=== PATIENT | male | born 1975 | race Caucasian/White ===

== ENCOUNTER 2020-07-21 14:56 | Inpatient (IN) | payer OTHER ==
[2020-07-21 16:09] VITALS: BMI 26.2
[2020-07-21] MEDS ORDERED: BISMUTH SUBSALICYLATE 524 MG/30 ML UD PO PRN (17:12)
[2020-07-21] MEDS ORDERED: MENTHOL/PHENOL 1 EACH UD MM PRN (17:12)
[2020-07-21] MEDS ORDERED: IBUPROFEN 400 MG TABLET (FP) PO PRN (17:12)
[2020-07-21] MEDS ORDERED: MAGNESIUM CITRATE 300 ML BOTTLE PO PRN (17:12)
[2020-07-21] MEDS ORDERED: MAGNESIUM HYDROX 2400MG/30ML ORAL SUSPENSION 30 ML CUP PO PRN (17:12)
[2020-07-21] MEDS ORDERED: ACETAMINOPHEN 325 MG TABLET (FP) PO PRN ×2 (17:12)
[2020-07-21] MEDS ORDERED: chlordiazePOXIDE HCL 25 MG CAPSULE PO PRN (17:12)
[2020-07-21] MEDS ORDERED: TRIMETHOBENZAMIDE HCL 200MG/2ML INJ IM ONE (17:46)
[2020-07-21] MEDS: MAG HYDROX/AL HYDROX/SIMETH 30 ML UNIT-DOSE CUP PO PRN (19:02)
[2020-07-21] MEDS ORDERED: MELATONIN 5 MG TABLETS PO SCH (22:00)
[2020-07-21] MEDS: hydrOXYzine PAMOATE 25 MG CAPSULE (FP) PO PRN (22:08)
[2020-07-21] MEDS: ONDANSETRON *ODT* 4 MG TABLET SL PRN (22:08)
[2020-07-21] MEDS: chlordiazePOXIDE HCL 25 MG CAPSULE PO SCH (22:09)
[2020-07-21] MEDS: THIAMINE HCL 100 MG TABLET (FP) PO SCH (22:09)
[2020-07-21] MEDS: METHOCARBAMOL 500 MG TABLET PO PRN (22:43)
[2020-07-22] MEDS: ONDANSETRON *ODT* 4 MG TABLET SL PRN (05:38)
[2020-07-22] MEDS: chlordiazePOXIDE HCL 25 MG CAPSULE PO SCH ×4 (05:38→22:48)
[2020-07-22] MEDS: hydrOXYzine PAMOATE 25 MG CAPSULE (FP) PO PRN ×3 (05:38→18:13)
[2020-07-22] MEDS: MAG HYDROX/AL HYDROX/SIMETH 30 ML UNIT-DOSE CUP PO PRN (05:41)
[2020-07-22] MEDS: INSULIN SLIDING SCALE (NOVOLOG) 1 VIAL SQ SCH ×3 (06:22→16:50)
[2020-07-22] MEDS: PRENATAL VITAMINS W/ FOLIC ACID TABLET (FP) PO SCH (10:17)
[2020-07-22] MEDS: METHOCARBAMOL 500 MG TABLET PO PRN (10:18)
[2020-07-22 10:51] LABS: POTASSIUM 3.7 mmol/L (3.5-5.1)
[2020-07-22 10:54] LABS: HEMATOCRIT 42.4 % (35.4-49); HEMOGLOBIN 14.1 GM/dL (11.7-16.9); MCH 28.9 pg (25.7-33.7); MCHC 33.3 g/dl (32.0-35.9); MEAN CELL VOLUME 86.7 fl (80-96); MEAN PLT VOLUME 8.5 fl (7.5-11.1); PLATELET COUNT 184 K/MM3 (134-434); RBC 4.89 M/mm3 (4.00-5.60); RDW 17.2 % (11.9-15.9); WHITE BLOOD COUNT 3.3 K/mm3 (4.0-10.0)
[2020-07-22 10:57] LABS: ALBUMIN 3.7 g/dl (3.4-5.0); BLOOD UREA NITROGEN 8.2 mg/dL (7-18)
[2020-07-22 11:00] LABS: CREATININE 0.7 mg/dL (0.55-1.3)
[2020-07-22 11:02] LABS: BILIRUBIN,TOTAL 0.9 mg/dL (0.2-1)
[2020-07-22 11:03] LABS: TOT PROT 6.8 g/dl (6.4-8.2)
[2020-07-22] MEDS: GABAPENTIN 100 MG CAPSULE PO SCH ×2 (14:08→22:47)
[2020-07-22] MEDS: metFORMIN HCL 500 MG TABLET (FP) PO SCH (18:11)
[2020-07-22] MEDS ORDERED: MIRTAZAPINE 30 MG TABLET PO SCH (22:00)
[2020-07-22] MEDS: traZODone HCL 100 MG TABLET (FP) PO SCH (22:47)
[2020-07-22] MEDS: MIRTAZAPINE 15 MG TABLET (FP) PO SCH (22:47)
[2020-07-22] MEDS: ROSUVASTATIN CA 10 MG TABLET (FP) PO SCH (22:47)
[2020-07-22] MEDS: THIAMINE HCL 100 MG TABLET (FP) PO SCH (22:47)
[2020-07-23] MEDS: chlordiazePOXIDE HCL 25 MG CAPSULE PO SCH ×4 (05:46→22:18)
[2020-07-23] MEDS: GABAPENTIN 100 MG CAPSULE PO SCH ×3 (05:46→22:18)
[2020-07-23] MEDS: hydrOXYzine PAMOATE 25 MG CAPSULE (FP) PO PRN ×4 (05:50→22:17)
[2020-07-23] MEDS: INSULIN SLIDING SCALE (NOVOLOG) 1 VIAL SQ SCH ×3 (08:27→17:45)
[2020-07-23] MEDS: metFORMIN HCL 500 MG TABLET (FP) PO SCH ×2 (08:27→16:33)
[2020-07-23] MEDS: PRENATAL VITAMINS W/ FOLIC ACID TABLET (FP) PO SCH (10:23)
[2020-07-23] MEDS: LISINOPRIL 10 MG TABLET PO SCH (10:23)
[2020-07-23] MEDS: METHOCARBAMOL 500 MG TABLET PO PRN (16:33)
[2020-07-23] MEDS: traZODone HCL 100 MG TABLET (FP) PO SCH (22:18)
[2020-07-23] MEDS: MIRTAZAPINE 15 MG TABLET (FP) PO SCH (22:18)
[2020-07-23] MEDS: THIAMINE HCL 100 MG TABLET (FP) PO SCH (22:18)
[2020-07-23] MEDS: ROSUVASTATIN CA 10 MG TABLET (FP) PO SCH (23:12)
[2020-07-24] MEDS ORDERED: chlordiazePOXIDE HCL 10 MG CAPSULE PO PRN
[2020-07-24] MEDS: METHOCARBAMOL 500 MG TABLET PO PRN ×2 (00:45→16:40)
[2020-07-24] MEDS: chlordiazePOXIDE HCL 10 MG CAPSULE PO SCH ×4 (05:57→22:21)
[2020-07-24] MEDS: hydrOXYzine PAMOATE 25 MG CAPSULE (FP) PO PRN ×3 (05:58→16:44)
[2020-07-24] MEDS: GABAPENTIN 100 MG CAPSULE PO SCH ×3 (05:58→22:20)
[2020-07-24] MEDS: INSULIN SLIDING SCALE (NOVOLOG) 1 VIAL SQ SCH ×3 (06:56→16:41)
[2020-07-24] MEDS: metFORMIN HCL 500 MG TABLET (FP) PO SCH ×2 (06:56→16:40)
[2020-07-24] MEDS: LISINOPRIL 10 MG TABLET PO SCH (10:27)
[2020-07-24] MEDS: PRENATAL VITAMINS W/ FOLIC ACID TABLET (FP) PO SCH (10:27)
[2020-07-24] MEDS ORDERED: INSULIN SLIDING SCALE (NOVOLOG) 1 VIAL SQ ONE (16:48)
[2020-07-24] MEDS: THIAMINE HCL 100 MG TABLET (FP) PO SCH (22:20)
[2020-07-24] MEDS: MIRTAZAPINE 15 MG TABLET (FP) PO SCH (22:20)
[2020-07-24] MEDS: traZODone HCL 100 MG TABLET (FP) PO SCH (22:20)
[2020-07-24] MEDS: ROSUVASTATIN CA 10 MG TABLET (FP) PO SCH (22:20)
[2020-07-25] MEDS: GABAPENTIN 100 MG CAPSULE PO SCH ×3 (05:39→22:19)
[2020-07-25] MEDS: chlordiazePOXIDE HCL 10 MG CAPSULE PO SCH ×2 (05:40→17:16)
[2020-07-25] MEDS: METHOCARBAMOL 500 MG TABLET PO PRN ×5 (05:41→23:20)
[2020-07-25] MEDS: INSULIN SLIDING SCALE (NOVOLOG) 1 VIAL SQ SCH ×3 (07:38→17:19)
[2020-07-25] MEDS: metFORMIN HCL 500 MG TABLET (FP) PO SCH ×2 (07:38→17:15)
[2020-07-25] MEDS: LISINOPRIL 10 MG TABLET PO SCH (10:06)
[2020-07-25] MEDS: hydrOXYzine PAMOATE 25 MG CAPSULE (FP) PO PRN ×4 (10:06→23:20)
[2020-07-25] MEDS: PRENATAL VITAMINS W/ FOLIC ACID TABLET (FP) PO SCH (10:07)
[2020-07-25] MEDS ORDERED: INSULIN SLIDING SCALE (NOVOLOG) 1 VIAL SQ ONE (14:36)
[2020-07-25] MEDS: traZODone HCL 100 MG TABLET (FP) PO SCH (22:20)
[2020-07-25] MEDS: THIAMINE HCL 100 MG TABLET (FP) PO SCH (22:20)
[2020-07-25] MEDS: MIRTAZAPINE 15 MG TABLET (FP) PO SCH (22:20)
[2020-07-25] MEDS: ROSUVASTATIN CA 10 MG TABLET (FP) PO SCH (22:20)
[2020-07-26] MEDS ORDERED: chlordiazePOXIDE HCL 10 MG CAPSULE PO ONE (05:00)
[2020-07-26] MEDS: METHOCARBAMOL 500 MG TABLET PO PRN (05:31)
[2020-07-26] MEDS: GABAPENTIN 100 MG CAPSULE PO SCH (05:32)
[2020-07-26] MEDS: INSULIN SLIDING SCALE (NOVOLOG) 1 VIAL SQ SCH (06:00)
[2020-07-26] MEDS: metFORMIN HCL 500 MG TABLET (FP) PO SCH (06:00)
[2020-07-26 09:17] VITALS: BP 89/67; PULSE 109; TEMP 98
[2020-07-26] MEDS: LISINOPRIL 10 MG TABLET PO SCH (09:21)
[2020-07-26] MEDS: PRENATAL VITAMINS W/ FOLIC ACID TABLET (FP) PO SCH (09:21)
== END 2020-07-26 09:24 | disposition home or self-care (01) | DRG 775 ==
LOC: YASAS 14:56 → Y3N 17:34
PROVIDERS: ADMIT Allergy & Immunology; ATTEND Allergy & Immunology
PROC: HZ2ZZZZ Detoxification Services for Substance Abuse Treatment (ICD-10-PCS; principal; 2020-07-21)
DX: F10.230 Alcohol dependence with withdrawal, uncomplicated (principal); F10.282 Alcohol dependence with alcohol-induced sleep disorder; F10.280 Alcohol dependence with alcohol-induced anxiety disorder; F10.24 Alcohol dependence with alcohol-induced mood disorder; F32.9 Major depressive disorder, single episode, unspecified; F43.10 Post-traumatic stress disorder, unspecified; G40.909 Epilepsy, unspecified, not intractable, without status epilepticus; G47.00 Insomnia, unspecified; I10 Essential (primary) hypertension; E78.5 Hyperlipidemia, unspecified; E11.65 Type 2 diabetes mellitus with hyperglycemia; Z79.4 Long term (current) use of insulin
CPT/HCPCS: 36415; 80053; 82962; 85027; 86780; 93005; 93010; C9803; Q0162; U0003; U0005

== ENCOUNTER 2021-03-02 09:46 | Inpatient (IN) | payer OTHER ==
[2021-03-02 10:08] VITALS: BMI 19.8
[2021-03-02] MEDS ORDERED: MAG HYDROX/AL HYDROX/SIMETH 30 ML UNIT-DOSE CUP PO PRN (10:26)
[2021-03-02] MEDS ORDERED: MAGNESIUM HYDROX 2400MG/30ML ORAL SUSPENSION 30 ML CUP PO PRN (10:26)
[2021-03-02] MEDS ORDERED: IBUPROFEN 400 MG TABLET (FP) PO PRN (10:26)
[2021-03-02] MEDS ORDERED: MAGNESIUM CITRATE 300 ML BOTTLE PO PRN (10:26)
[2021-03-02] MEDS ORDERED: ACETAMINOPHEN 325 MG TABLET (FP) PO PRN ×2 (10:26)
[2021-03-02] MEDS ORDERED: MENTHOL/PHENOL 1 EACH UD MM PRN (10:26)
[2021-03-02] MEDS ORDERED: diazePAM 5 MG TABLET PO PRN (10:26)
[2021-03-02] MEDS ORDERED: BISMUTH SUBSALICYLATE 524 MG/30 ML PO PRN (10:26)
[2021-03-02] MEDS ORDERED: ONDANSETRON *ODT* 4 MG TABLET SL PRN (10:26)
[2021-03-02] MEDS ORDERED: diazePAM 5 MG TABLET ONE (10:44)
[2021-03-02] MEDS ORDERED: diazePAM 5 MG TABLET PO SCH (11:00)
[2021-03-02] MEDS ORDERED: INSULIN (NOVOLOG) ASPART 100 UNITS/ML 10ML VIAL SQ ONE (11:30)
[2021-03-02] MEDS: INSULIN SLIDING SCALE (NOVOLOG) 1 VIAL SQ SCH ×2 (12:38→17:54)
[2021-03-02] MEDS: PRENATAL VITAMINS W/ FOLIC ACID TABLET (FP) PO SCH (12:38)
[2021-03-02] MEDS ORDERED: LORazepam 1 MG TABLET PO PRN (13:09)
[2021-03-02] MEDS: hydrOXYzine PAMOATE 25 MG CAPSULE (FP) PO SCH ×3 (15:09→22:48)
[2021-03-02] MEDS: GABAPENTIN 300 MG CAPSULE PO SCH ×2 (15:09→22:48)
[2021-03-02 17:41] LABS: HEMATOCRIT 41.8 % (35.4-49); HEMOGLOBIN 14.3 GM/dL (11.7-16.9); MCH 29.6 pg (25.7-33.7); MCHC 34.2 g/dl (32.0-35.9); MEAN CELL VOLUME 86.7 fl (80-96); MEAN PLT VOLUME 7.7 fl (7.5-11.1); PLATELET COUNT 316 10^3/uL (134-434); RBC 4.82 M/mm3 (4.00-5.60); RDW 16.3 % (11.9-15.9); WHITE BLOOD COUNT 4.6 K/mm3 (4.0-10.0)
[2021-03-02 17:43] LABS: BLOOD UREA NITROGEN 5.5 mg/dL (7-18)
[2021-03-02 17:47] LABS: CREATININE 0.7 mg/dL (0.55-1.3)
[2021-03-02 17:48] LABS: BILIRUBIN,TOTAL 0.3 mg/dL (0.2-1); TOT PROT 7.7 g/dl (6.4-8.2)
[2021-03-02] MEDS: LORazepam 2 MG TABLET PO SCH ×2 (17:48→22:49)
[2021-03-02] MEDS: INSULIN (NOVOLOG) ASPART 100 UNITS/ML 10ML VIAL SQ SCH ×2 (17:52→22:50)
[2021-03-02] MEDS ORDERED: INSULIN (NOVOLOG) ASPART 100 UNITS/ML 10ML VIAL SQ SCH (22:00)
[2021-03-02] MEDS: THIAMINE HCL 100 MG TABLET (FP) PO SCH (22:48)
[2021-03-02] MEDS: MELATONIN 5 MG TABLETS PO SCH (22:48)
[2021-03-03] MEDS: hydrOXYzine PAMOATE 25 MG CAPSULE (FP) PO SCH ×5 (06:24→22:39)
[2021-03-03] MEDS: LORazepam 2 MG TABLET PO SCH ×4 (06:24→22:41)
[2021-03-03] MEDS: GABAPENTIN 300 MG CAPSULE PO SCH ×3 (06:24→22:40)
[2021-03-03] MEDS: INSULIN SLIDING SCALE (NOVOLOG) 1 VIAL SQ SCH ×3 (06:29→17:54)
[2021-03-03] MEDS: INSULIN (NOVOLOG) ASPART 100 UNITS/ML 10ML VIAL SQ SCH ×4 (06:31→21:46)
[2021-03-03] MEDS: METHOCARBAMOL 500 MG TABLET PO PRN ×2 (06:34→17:51)
[2021-03-03] MEDS: PRENATAL VITAMINS W/ FOLIC ACID TABLET (FP) PO SCH (10:30)
[2021-03-03] MEDS: traZODone HCL 50 MG TABLET (FP) PO SCH (22:40)
[2021-03-03] MEDS: MIRTAZAPINE 15 MG TABLET (FP) PO SCH (22:40)
[2021-03-03] MEDS: MELATONIN 5 MG TABLETS PO SCH (22:40)
[2021-03-03] MEDS: THIAMINE HCL 100 MG TABLET (FP) PO SCH (22:41)
[2021-03-04] MEDS ORDERED: diazePAM 5 MG TABLET PO SCH (06:00)
[2021-03-04] MEDS: LORazepam 1 MG TABLET PO SCH ×4 (06:19→22:22)
[2021-03-04] MEDS: hydrOXYzine PAMOATE 25 MG CAPSULE (FP) PO SCH ×5 (06:20→22:21)
[2021-03-04] MEDS: GABAPENTIN 300 MG CAPSULE PO SCH ×3 (06:20→22:21)
[2021-03-04] MEDS: INSULIN SLIDING SCALE (NOVOLOG) 1 VIAL SQ SCH ×3 (08:00→17:07)
[2021-03-04] MEDS: INSULIN (NOVOLOG) ASPART 100 UNITS/ML 10ML VIAL SQ SCH ×4 (08:00→22:33)
[2021-03-04] MEDS: PRENATAL VITAMINS W/ FOLIC ACID TABLET (FP) PO SCH (10:07)
[2021-03-04] MEDS: METHOCARBAMOL 500 MG TABLET PO PRN ×2 (16:03→22:25)
[2021-03-04] MEDS: traZODone HCL 50 MG TABLET (FP) PO SCH (22:20)
[2021-03-04] MEDS: THIAMINE HCL 100 MG TABLET (FP) PO SCH (22:21)
[2021-03-04] MEDS: MIRTAZAPINE 15 MG TABLET (FP) PO SCH (22:21)
[2021-03-04] MEDS: MELATONIN 5 MG TABLETS PO SCH (22:21)
[2021-03-04] MEDS ORDERED: INSULIN SLIDING SCALE (NOVOLOG) 1 VIAL SQ ONE (22:23)
[2021-03-05] MEDS ORDERED: LORazepam 0.5 MG TABLET PO PRN
[2021-03-05] MEDS ORDERED: diazePAM 5 MG TABLET PO SCH (06:00)
[2021-03-05] MEDS: hydrOXYzine PAMOATE 25 MG CAPSULE (FP) PO SCH ×5 (06:02→22:30)
[2021-03-05] MEDS: GABAPENTIN 300 MG CAPSULE PO SCH ×3 (06:02→22:31)
[2021-03-05] MEDS: LORazepam 0.5 MG TABLET PO SCH ×4 (06:02→22:31)
[2021-03-05] MEDS: INSULIN (NOVOLOG) ASPART 100 UNITS/ML 10ML VIAL SQ SCH ×4 (08:07→22:37)
[2021-03-05] MEDS: INSULIN SLIDING SCALE (NOVOLOG) 1 VIAL SQ SCH ×3 (08:08→16:40)
[2021-03-05] MEDS: METHOCARBAMOL 500 MG TABLET PO PRN ×2 (10:05→16:40)
[2021-03-05] MEDS: PRENATAL VITAMINS W/ FOLIC ACID TABLET (FP) PO SCH (10:05)
[2021-03-05] MEDS ORDERED: traZODone HCL 100 MG TABLET (FP) PO SCH (22:00)
[2021-03-05] MEDS ORDERED: INSULIN (LEVEMIR) 100 UNITS/ML UNITS SQ SCH (22:00)
[2021-03-05] MEDS: MIRTAZAPINE 15 MG TABLET (FP) PO SCH (22:29)
[2021-03-05] MEDS ORDERED: INSULIN SLIDING SCALE (NOVOLOG) 1 VIAL SQ ONE (22:36)
[2021-03-05] MEDS: THIAMINE HCL 100 MG TABLET (FP) PO SCH (22:38)
[2021-03-05] MEDS: MELATONIN 5 MG TABLETS PO SCH (22:38)
[2021-03-06] MEDS ORDERED: LORazepam 0.5 MG TABLET PO ONE (05:00)
[2021-03-06] MEDS: METHOCARBAMOL 500 MG TABLET PO PRN (05:01)
[2021-03-06] MEDS: hydrOXYzine PAMOATE 25 MG CAPSULE (FP) PO SCH ×2 (05:01→09:22)
[2021-03-06] MEDS: GABAPENTIN 300 MG CAPSULE PO SCH (05:01)
[2021-03-06] MEDS ORDERED: diazePAM 5 MG TABLET PO ONE (06:00)
[2021-03-06 06:40] VITALS: TEMP 97.1
[2021-03-06] MEDS: INSULIN (NOVOLOG) ASPART 100 UNITS/ML 10ML VIAL SQ SCH (06:47)
[2021-03-06] MEDS: INSULIN SLIDING SCALE (NOVOLOG) 1 VIAL SQ SCH (06:47)
[2021-03-06 09:00] VITALS: BP 145/66; PULSE 100
[2021-03-06] MEDS: PRENATAL VITAMINS W/ FOLIC ACID TABLET (FP) PO SCH (09:23)
== END 2021-03-06 09:30 | disposition home or self-care (01) | DRG 775 ==
LOC: YASAS 09:46 → Y3N 10:35
PROVIDERS: ADMIT Allergy & Immunology; ATTEND Allergy & Immunology
PROC: HZ2ZZZZ Detoxification Services for Substance Abuse Treatment (ICD-10-PCS; principal; 2021-03-02)
DX: F10.230 Alcohol dependence with withdrawal, uncomplicated (principal); F10.282 Alcohol dependence with alcohol-induced sleep disorder; F41.8 Other specified anxiety disorders; F32.A Depression, unspecified; F43.10 Post-traumatic stress disorder, unspecified; G40.909 Epilepsy, unspecified, not intractable, without status epilepticus; E11.65 Type 2 diabetes mellitus with hyperglycemia; E78.5 Hyperlipidemia, unspecified; I10 Essential (primary) hypertension; Z79.4 Long term (current) use of insulin; I25.2 Old myocardial infarction; Z86.73 Personal history of transient ischemic attack (TIA), and cerebral infarction without residual deficits
CPT/HCPCS: 36415; 80053; 82962; 85027; 86780; C9803; Q0162; U0003; U0005

== ENCOUNTER 2021-06-06 02:10 | Inpatient (IN) | payer OTHER ==
[2021-06-06 06:45] VITALS: BMI 25.8
[2021-06-06] MEDS ORDERED: MAGNESIUM HYDROX 2400MG/30ML ORAL SUSPENSION 30 ML CUP PO PRN (08:49)
[2021-06-06] MEDS ORDERED: MENTHOL/PHENOL 1 EACH UD MM PRN (08:49)
[2021-06-06] MEDS ORDERED: MAGNESIUM CITRATE 300 ML BOTTLE PO PRN (08:49)
[2021-06-06] MEDS ORDERED: BISMUTH SUBSALICYLATE 262 MG/15 ML BTL PO PRN (08:49)
[2021-06-06] MEDS ORDERED: ONDANSETRON *ODT* 4 MG TABLET SL PRN (08:49)
[2021-06-06] MEDS ORDERED: NICOTINE 10 MG CARTRIDGE (INHALER) IH PRN (08:49)
[2021-06-06] MEDS ORDERED: ACETAMINOPHEN 325 MG TABLET (FP) PO PRN ×2 (08:49)
[2021-06-06] MEDS ORDERED: TRIMETHOBENZAMIDE HCL 200MG/2ML INJ IM ONE ×2 (09:06→09:35)
[2021-06-06] MEDS ORDERED: hydrOXYzine PAMOATE 25 MG CAPSULE (FP) PO ONE (09:14)
[2021-06-06] MEDS ORDERED: LORazepam 2 MG TABLET ONE (09:14)
[2021-06-06] MEDS: hydrOXYzine PAMOATE 25 MG CAPSULE (FP) PO SCH ×4 (09:36→22:14)
[2021-06-06] MEDS: NICOTINE 14 MG/24 HOURS TOPICAL PATCH TD SCH (09:36)
[2021-06-06] MEDS: LORazepam 2 MG TABLET PO SCH ×4 (09:36→22:13)
[2021-06-06] MEDS: PRENATAL VITAMINS W/ FOLIC ACID TABLET (FP) PO SCH (09:36)
[2021-06-06] MEDS ORDERED: INSULIN (NOVOLOG) ASPART 100 UNITS/ML 10ML VIAL SQ SCH (09:45)
[2021-06-06] MEDS ORDERED: MAG HYDROX/AL HYDROX/SIMETH 30 ML UNIT-DOSE CUP ONE (09:54)
[2021-06-06] MEDS: MAG HYDROX/AL HYDROX/SIMETH 30 ML UNIT-DOSE CUP PO PRN (09:55)
[2021-06-06] MEDS ORDERED: PATIENT'S OWN MEDICATION (NON-FORMULARY) (Lamotrigine [Lamictal] 150 MG Tablet) PO SCH (10:00)
[2021-06-06] MEDS ORDERED: INSULIN SLIDING SCALE (NOVOLOG) 1 VIAL SQ SCH ×3 (11:00→11:15)
[2021-06-06 11:56] LABS: HEMOGLOBIN 14.2 GM/dL (11.7-16.9); MCH 29.7 pg (25.7-33.7); MCHC 33.7 g/dl (32.0-35.9); MEAN PLT VOLUME 8.1 fl (7.5-11.1); PLATELET COUNT 191 10^3/uL (134-434); RBC 4.77 M/mm3 (4.00-5.60); RDW 15.7 % (11.9-15.9); WHITE BLOOD COUNT 3.4 K/mm3 (4.0-10.0)
[2021-06-06] MEDS: LAMOTRIGINE 100 MG, LAMOTRIGINE 50 MG PO SCH (12:15)
[2021-06-06] MEDS: IBUPROFEN 400 MG TABLET (FP) PO PRN (12:16)
[2021-06-06 13:01] LABS: CALCIUM 9.2 mg/dL (8.5-10.1)
[2021-06-06 13:02] LABS: BLOOD UREA NITROGEN 5.8 mg/dL (7-18)
[2021-06-06 13:05] LABS: CREATININE 0.6 mg/dL (0.55-1.3)
[2021-06-06 13:07] LABS: TOT PROT 7.6 g/dl (6.4-8.2)
[2021-06-06 13:08] LABS: BILIRUBIN,TOTAL 0.5 mg/dL (0.2-1)
[2021-06-06] MEDS: INSULIN SLIDING SCALE (NOVOLOG) 1 VIAL SQ SCH (18:07)
[2021-06-06] MEDS ORDERED: traZODone HCL 50 MG TABLET (FP) PO SCH (22:00)
[2021-06-06] MEDS: METHOCARBAMOL 500 MG TABLET PO PRN (22:14)
[2021-06-06] MEDS: MELATONIN 5 MG TABLETS PO SCH (22:14)
[2021-06-06] MEDS: MIRTAZAPINE 15 MG TABLET (FP) PO SCH (22:14)
[2021-06-06] MEDS: THIAMINE HCL 100 MG TABLET (FP) PO SCH (22:14)
[2021-06-06] MEDS: INSULIN (LEVEMIR) 100 UNITS/ML UNITS SQ SCH (22:58)
[2021-06-07] MEDS ORDERED: INSULIN SLIDING SCALE (NOVOLOG) 1 VIAL SQ ONE ×2 (04:30→12:03)
[2021-06-07] MEDS: hydrOXYzine PAMOATE 25 MG CAPSULE (FP) PO SCH ×5 (06:25→22:37)
[2021-06-07] MEDS: LORazepam 1 MG TABLET PO SCH ×4 (06:26→22:37)
[2021-06-07] MEDS: METHOCARBAMOL 500 MG TABLET PO PRN ×2 (06:27→22:38)
[2021-06-07] MEDS: INSULIN SLIDING SCALE (NOVOLOG) 1 VIAL SQ SCH ×3 (06:37→19:08)
[2021-06-07] MEDS: LORazepam 1 MG TABLET PO PRN ×2 (09:01→15:31)
[2021-06-07] MEDS: LAMOTRIGINE 100 MG, LAMOTRIGINE 50 MG PO SCH (10:31)
[2021-06-07] MEDS: PRENATAL VITAMINS W/ FOLIC ACID TABLET (FP) PO SCH (10:31)
[2021-06-07] MEDS: NICOTINE 14 MG/24 HOURS TOPICAL PATCH TD SCH (10:31)
[2021-06-07] MEDS: INSULIN (LEVEMIR) 100 UNITS/ML UNITS SQ SCH (21:46)
[2021-06-07] MEDS: THIAMINE HCL 100 MG TABLET (FP) PO SCH (22:37)
[2021-06-07] MEDS: MELATONIN 5 MG TABLETS PO SCH (22:37)
[2021-06-07] MEDS: MIRTAZAPINE 15 MG TABLET (FP) PO SCH (22:37)
[2021-06-08] MEDS ORDERED: LORazepam 0.5 MG TABLET PO PRN
[2021-06-08] MEDS: IBUPROFEN 400 MG TABLET (FP) PO PRN (01:29)
[2021-06-08] MEDS: cloNIDine HCL 0.1 MG TABLET PO PRN (01:29)
[2021-06-08] MEDS: hydrOXYzine PAMOATE 25 MG CAPSULE (FP) PO SCH ×5 (05:41→22:24)
[2021-06-08] MEDS: LORazepam 0.5 MG TABLET PO SCH ×4 (05:42→22:24)
[2021-06-08] MEDS: INSULIN SLIDING SCALE (NOVOLOG) 1 VIAL SQ SCH ×3 (07:35→17:53)
[2021-06-08] MEDS: PRENATAL VITAMINS W/ FOLIC ACID TABLET (FP) PO SCH (10:40)
[2021-06-08] MEDS: LAMOTRIGINE 100 MG, LAMOTRIGINE 50 MG PO SCH (10:40)
[2021-06-08] MEDS: NICOTINE 14 MG/24 HOURS TOPICAL PATCH TD SCH (10:40)
[2021-06-08] MEDS: MAG HYDROX/AL HYDROX/SIMETH 30 ML UNIT-DOSE CUP PO PRN (17:52)
[2021-06-08 21:32] VITALS: TEMP 97.5
[2021-06-08] MEDS: MIRTAZAPINE 15 MG TABLET (FP) PO SCH (22:24)
[2021-06-08] MEDS: THIAMINE HCL 100 MG TABLET (FP) PO SCH (22:24)
[2021-06-08] MEDS: METHOCARBAMOL 500 MG TABLET PO PRN (22:24)
[2021-06-08] MEDS: MELATONIN 5 MG TABLETS PO SCH (22:28)
[2021-06-08] MEDS: INSULIN (LEVEMIR) 100 UNITS/ML UNITS SQ SCH (22:28)
[2021-06-09] MEDS: IBUPROFEN 400 MG TABLET (FP) PO PRN (01:37)
[2021-06-09] MEDS: cloNIDine HCL 0.1 MG TABLET PO PRN (01:37)
[2021-06-09] MEDS ORDERED: INSULIN SLIDING SCALE (NOVOLOG) 1 VIAL SQ ONE (04:48)
[2021-06-09] MEDS ORDERED: LORazepam 0.5 MG TABLET PO ONE (05:00)
[2021-06-09] MEDS: hydrOXYzine PAMOATE 25 MG CAPSULE (FP) PO SCH ×2 (05:35→09:27)
[2021-06-09] MEDS: METHOCARBAMOL 500 MG TABLET PO PRN (05:37)
[2021-06-09 06:07] LABS: SARS-CoV-2 NAA Not Detected (Not Detected)
[2021-06-09 06:51] VITALS: BP 116/75; PULSE 61
[2021-06-09] MEDS: INSULIN SLIDING SCALE (NOVOLOG) 1 VIAL SQ SCH (07:40)
[2021-06-09] MEDS: NICOTINE 14 MG/24 HOURS TOPICAL PATCH TD SCH (09:26)
[2021-06-09] MEDS: LAMOTRIGINE 100 MG, LAMOTRIGINE 50 MG PO SCH (09:26)
[2021-06-09] MEDS: PRENATAL VITAMINS W/ FOLIC ACID TABLET (FP) PO SCH (09:26)
[2021-06-10 14:11] LABS: SARS-CoV-2 NAA Not Detected (Not Detected)
== END 2021-06-09 09:15 | disposition home or self-care (01) | DRG 775 ==
LOC: YASAS 02:10 → Y3N 08:59
PROVIDERS: ADMIT Allergy & Immunology; ATTEND Allergy & Immunology
PROC: HZ2ZZZZ Detoxification Services for Substance Abuse Treatment (ICD-10-PCS; principal; 2021-06-06)
DX: F10.230 Alcohol dependence with withdrawal, uncomplicated (principal); F13.20 Sedative, hypnotic or anxiolytic dependence, uncomplicated; F10.280 Alcohol dependence with alcohol-induced anxiety disorder; F10.24 Alcohol dependence with alcohol-induced mood disorder; F10.282 Alcohol dependence with alcohol-induced sleep disorder; F43.10 Post-traumatic stress disorder, unspecified; F41.8 Other specified anxiety disorders; F32.A Depression, unspecified; G40.909 Epilepsy, unspecified, not intractable, without status epilepticus; E11.42 Type 2 diabetes mellitus with diabetic polyneuropathy; Z79.4 Long term (current) use of insulin; I10 Essential (primary) hypertension; K76.0 Fatty (change of) liver, not elsewhere classified; E78.5 Hyperlipidemia, unspecified; Z86.69 Personal history of other diseases of the nervous system and sense organs; Z87.891 Personal history of nicotine dependence
CPT/HCPCS: 36415; 80053; 82962; 85027; 86780; C9803; J0735; Q0162; U0003; U0005

== ENCOUNTER 2021-10-31 08:41 | Emergency (ER) | payer OTHER ==
[2021-10-31 08:53] VITALS: TEMP 97.6; BMI 26.4
[2021-10-31] MEDS ORDERED: ONDANSETRON 4 MG/2 ML VIAL IVPUSH ONE (09:31)
[2021-10-31] MEDS ORDERED: FAMOTIDINE 20 MG/50 ML IVPB 20 MG/50 ML MG IVPB ONE ×2 (09:31→09:42)
[2021-10-31] MEDS ORDERED: SODIUM CHLORIDE 0.9% 500 ML INFUS.BAG IV ONE (09:31)
[2021-10-31] MEDS ORDERED: LORazepam 2 MG/ML SDV VIAL IVPUSH ONE ×2 (09:31→10:38)
[2021-10-31] MEDS ORDERED: ONDANSETRON 4 MG/2 ML VIAL ONE (09:41)
[2021-10-31] MEDS ORDERED: levETIRAcetam 500 MG/5 ML INJECTION VIAL IVPB ONE ×2 (09:50→09:52)
[2021-10-31 10:25] LABS: BASO % 0.7 % (0-2.0); EOS % 0.2 % (0-4.5); HEMATOCRIT 39.6 % (35.4-49); HEMOGLOBIN 13.6 GM/dL (11.7-16.9); LYMPH % 35.7 % (8-40); MCH 29.9 pg (25.7-33.7); MCHC 34.2 g/dl (32.0-35.9); MEAN CELL VOLUME 87.5 fl (80-96); MEAN PLT VOLUME 7.7 fl (7.5-11.1); MONO % 11.5 % (3.8-10.2); NEUT % 51.9 % (42.8-82.8); PLATELET COUNT 167 10^3/uL (134-434); RBC 4.53 M/mm3 (4.00-5.60); RDW 16.1 % (11.9-15.9); WHITE BLOOD COUNT 3.2 K/mm3 (4.0-10.0)
[2021-10-31] MEDS ORDERED: ACETAMINOPHEN 1000 MG/100 ML BAG IVPB ONE (10:37)
[2021-10-31 10:39] LABS: ALBUMIN 3.7 g/dl (3.4-5.0); BLOOD UREA NITROGEN 3.1 mg/dL (7-18); CALCIUM 8.7 mg/dL (8.5-10.1)
[2021-10-31] MEDS ORDERED: MAG HYDROX/AL HYDROX/SIMETH -MYLANTA- ORAL SUSPENSION PO ONE (10:39)
[2021-10-31 10:40] LABS: MAGNESIUM 1.5 mg/dL (1.8-2.4)
[2021-10-31 10:41] LABS: CREATININE 0.6 mg/dL (0.55-1.3)
[2021-10-31] MEDS ORDERED: ACETAMINOPHEN INJECTION 100 ML IVPB ONE (10:41)
[2021-10-31] MEDS ORDERED: MAG HYDROX/AL HYDROX/SIMETH 30 ML UNIT-DOSE CUP ONE (10:41)
[2021-10-31 10:43] LABS: BILIRUBIN,TOTAL 0.4 mg/dL (0.2-1)
[2021-10-31] MEDS ORDERED: MAGNESIUM SULF 50% (8.12 MEQ/2 ML-1 GM VIAL) IVPB ONE (11:31)
[2021-10-31] MEDS ORDERED: MAGNESIUM SULFATE IN WATER 2 GM/50 ML IVPB IVPB ONE (11:36)
[2021-10-31 13:02] VITALS: BP 123/85; PULSE 90
== END 2021-10-31 13:08 | disposition home or self-care (01) ==
LOC: JER 08:41
PROC: 3E0333Z Introduction of Anti-inflammatory into Peripheral Vein, Percutaneous Approach (ICD-10-PCS; principal; 2021-10-31)
PROC: 3E033GC Introduction of Other Therapeutic Substance into Peripheral Vein, Percutaneous Approach (ICD-10-PCS; 2021-10-31)
PROC: 3E033GC Introduction of Other Therapeutic Substance into Peripheral Vein, Percutaneous Approach (ICD-10-PCS; 2021-10-31)
PROC: 3E033NZ Introduction of Analgesics, Hypnotics, Sedatives into Peripheral Vein, Percutaneous Approach (ICD-10-PCS; 2021-10-31)
PROC: 3E033NZ Introduction of Analgesics, Hypnotics, Sedatives into Peripheral Vein, Percutaneous Approach (ICD-10-PCS; 2021-10-31)
PROC: 3E033GC Introduction of Other Therapeutic Substance into Peripheral Vein, Percutaneous Approach (ICD-10-PCS; 2021-10-31)
PROC: 3E033GC Introduction of Other Therapeutic Substance into Peripheral Vein, Percutaneous Approach (ICD-10-PCS; 2021-10-31)
DX: G40.89 Other seizures (principal); F10.20 Alcohol dependence, uncomplicated; F41.9 Anxiety disorder, unspecified
CPT/HCPCS: 36415; 80053; 83690; 83735; 84484; 85025; 87086; 93005; 93010; 99284-25; C9803-CS; U0003; U0005

== ENCOUNTER 2021-10-31 13:42 | Inpatient (IN) | payer OTHER ==
[2021-10-31] MEDS: LORazepam 2 MG TABLET PO SCH ×3 (13:54→22:52)
[2021-10-31 15:41] VITALS: BMI 25.1
[2021-10-31] MEDS ORDERED: BENZOCAINE/MENTHOL (CHLORASEPTIC ) LOZENGE MM PRN (15:43)
[2021-10-31] MEDS ORDERED: LOPERAMIDE HCL 2 MG CAPSULE PO PRN (15:43)
[2021-10-31] MEDS ORDERED: LORazepam 2 MG TABLET PO ONE (15:43)
[2021-10-31] MEDS ORDERED: DICYCLOMINE HCL 10 MG CAPSULE PO PRN (15:43)
[2021-10-31] MEDS ORDERED: MAGNESIUM HYDROX 2400MG/30ML ORAL SUSPENSION 30 ML CUP PO PRN (15:43)
[2021-10-31] MEDS ORDERED: ACETAMINOPHEN 325 MG TABLET (FP) PO PRN ×2 (15:43)
[2021-10-31] MEDS ORDERED: MAG HYDROX/AL HYDROX/SIMETH 30 ML UNIT-DOSE CUP PO PRN (15:43)
[2021-10-31] MEDS ORDERED: IBUPROFEN 400 MG TABLET (FP) PO PRN (15:43)
[2021-10-31] MEDS ORDERED: MAGNESIUM CITRATE 300 ML BOTTLE PO PRN (15:43)
[2021-10-31] MEDS ORDERED: LORazepam 1 MG TABLET PO PRN (15:43)
[2021-10-31] MEDS ORDERED: BISMUTH SUBSALICYLATE 524 MG/30 ML PO PRN (15:43)
[2021-10-31] MEDS ORDERED: NICOTINE 10 MG CARTRIDGE (INHALER) IH PRN (15:43)
[2021-10-31] MEDS: hydrOXYzine PAMOATE 25 MG CAPSULE (FP) PO SCH ×2 (18:33→22:49)
[2021-10-31] MEDS: PRENATAL VITAMINS W/ FOLIC ACID TABLET (FP) PO SCH (18:34)
[2021-10-31] MEDS: NICOTINE 14 MG/24 HOURS TOPICAL PATCH TD SCH (18:35)
[2021-10-31] MEDS: ONDANSETRON *ODT* 4 MG TABLET SL PRN (18:37)
[2021-10-31] MEDS: GABAPENTIN 300 MG CAPSULE PO SCH (22:50)
[2021-10-31] MEDS: THIAMINE HCL 100 MG TABLET (FP) PO SCH (22:50)
[2021-10-31] MEDS: MIRTAZAPINE 15 MG TABLET (FP) PO SCH (22:50)
[2021-10-31] MEDS: MELATONIN 5 MG TABLETS PO SCH (22:50)
[2021-10-31] MEDS: INSULIN (LEVEMIR) 100 UNITS/ML UNITS SQ SCH (23:11)
[2021-11-01] MEDS ORDERED: INSULIN SLIDING SCALE (NOVOLOG) 1 VIAL SQ SCH (07:00)
[2021-11-01] MEDS: GABAPENTIN 300 MG CAPSULE PO SCH ×3 (07:28→22:29)
[2021-11-01] MEDS: hydrOXYzine PAMOATE 25 MG CAPSULE (FP) PO SCH ×5 (07:28→22:29)
[2021-11-01] MEDS: LORazepam 2 MG TABLET PO SCH ×4 (07:29→22:29)
[2021-11-01] MEDS ORDERED: lamoTRIgine 25 MG TABLET PO SCH (10:00)
[2021-11-01] MEDS ORDERED: ESCITALOPRAM OXALATE 10 MG TABLET PO SCH (10:00)
[2021-11-01] MEDS: LAMOTRIGINE 100 MG, LAMOTRIGINE 50 MG PO SCH (10:39)
[2021-11-01] MEDS: METHOCARBAMOL 500 MG TABLET PO PRN ×2 (10:40→22:31)
[2021-11-01] MEDS: NICOTINE 14 MG/24 HOURS TOPICAL PATCH TD SCH (10:40)
[2021-11-01] MEDS: PRENATAL VITAMINS W/ FOLIC ACID TABLET (FP) PO SCH (10:40)
[2021-11-01] MEDS: INSULIN SLIDING SCALE (NOVOLOG) 1 VIAL SQ SCH ×2 (12:10→17:16)
[2021-11-01] MEDS: MIRTAZAPINE 15 MG TABLET (FP) PO SCH (22:29)
[2021-11-01] MEDS: THIAMINE HCL 100 MG TABLET (FP) PO SCH (22:29)
[2021-11-01] MEDS: MELATONIN 5 MG TABLETS PO SCH (22:29)
[2021-11-01] MEDS: IBUPROFEN 600 MG TABLET (FP) PO PRN (22:31)
[2021-11-01] MEDS: INSULIN (LEVEMIR) 100 UNITS/ML UNITS SQ SCH (22:31)
[2021-11-02] MEDS: hydrOXYzine PAMOATE 25 MG CAPSULE (FP) PO SCH ×5 (05:59→22:57)
[2021-11-02] MEDS: LORazepam 1 MG TABLET PO SCH ×4 (05:59→22:58)
[2021-11-02] MEDS: GABAPENTIN 300 MG CAPSULE PO SCH ×3 (05:59→22:58)
[2021-11-02] MEDS: METHOCARBAMOL 500 MG TABLET PO PRN ×3 (06:02→23:11)
[2021-11-02] MEDS: INSULIN SLIDING SCALE (NOVOLOG) 1 VIAL SQ SCH ×3 (07:17→17:14)
[2021-11-02] MEDS: PRENATAL VITAMINS W/ FOLIC ACID TABLET (FP) PO SCH (10:46)
[2021-11-02] MEDS: NICOTINE 14 MG/24 HOURS TOPICAL PATCH TD SCH (10:47)
[2021-11-02] MEDS: LAMOTRIGINE 100 MG, LAMOTRIGINE 50 MG PO SCH (10:47)
[2021-11-02] MEDS ORDERED: INSULIN SLIDING SCALE (NOVOLOG) 1 VIAL SQ ONE (17:02)
[2021-11-02] MEDS: THIAMINE HCL 100 MG TABLET (FP) PO SCH (22:58)
[2021-11-02] MEDS: traZODone HCL 50 MG TABLET (FP) PO SCH (22:58)
[2021-11-02] MEDS: MIRTAZAPINE 15 MG TABLET (FP) PO SCH (22:58)
[2021-11-02] MEDS: INSULIN (LEVEMIR) 100 UNITS/ML UNITS SQ SCH (23:05)
[2021-11-03] MEDS ORDERED: LORazepam 0.5 MG TABLET PO PRN
[2021-11-03] MEDS: METHOCARBAMOL 500 MG TABLET PO PRN ×3 (05:14→22:36)
[2021-11-03] MEDS: GABAPENTIN 300 MG CAPSULE PO SCH ×3 (05:15→22:34)
[2021-11-03] MEDS: LORazepam 0.5 MG TABLET PO SCH ×4 (05:15→22:36)
[2021-11-03] MEDS: hydrOXYzine PAMOATE 25 MG CAPSULE (FP) PO SCH ×5 (05:15→22:36)
[2021-11-03] MEDS: INSULIN SLIDING SCALE (NOVOLOG) 1 VIAL SQ SCH ×3 (07:32→16:55)
[2021-11-03] MEDS ORDERED: INSULIN SLIDING SCALE (NOVOLOG) 1 VIAL SQ ONE ×2 (07:32→12:54)
[2021-11-03] MEDS: LAMOTRIGINE 100 MG, LAMOTRIGINE 50 MG PO SCH (10:04)
[2021-11-03] MEDS: PRENATAL VITAMINS W/ FOLIC ACID TABLET (FP) PO SCH (10:04)
[2021-11-03] MEDS: NICOTINE 14 MG/24 HOURS TOPICAL PATCH TD SCH (10:04)
[2021-11-03] MEDS: IBUPROFEN 600 MG TABLET (FP) PO PRN (16:59)
[2021-11-03] MEDS: THIAMINE HCL 100 MG TABLET (FP) PO SCH (22:34)
[2021-11-03] MEDS: traZODone HCL 50 MG TABLET (FP) PO SCH (22:34)
[2021-11-03] MEDS: MIRTAZAPINE 15 MG TABLET (FP) PO SCH (22:34)
[2021-11-03] MEDS: INSULIN (LEVEMIR) 100 UNITS/ML UNITS SQ SCH ×2 (22:39→22:53)
[2021-11-04] MEDS ORDERED: LORazepam 0.5 MG TABLET PO ONE (05:00)
[2021-11-04] MEDS ORDERED: INSULIN SLIDING SCALE (NOVOLOG) 1 VIAL SQ ONE (05:18)
[2021-11-04] MEDS: hydrOXYzine PAMOATE 25 MG CAPSULE (FP) PO SCH ×2 (05:20→09:32)
[2021-11-04] MEDS: ONDANSETRON *ODT* 4 MG TABLET SL PRN (05:20)
[2021-11-04] MEDS: GABAPENTIN 300 MG CAPSULE PO SCH (05:20)
[2021-11-04] MEDS: INSULIN SLIDING SCALE (NOVOLOG) 1 VIAL SQ SCH (08:11)
[2021-11-04] MEDS: LAMOTRIGINE 100 MG, LAMOTRIGINE 50 MG PO SCH (09:31)
[2021-11-04] MEDS: NICOTINE 14 MG/24 HOURS TOPICAL PATCH TD SCH (09:32)
[2021-11-04] MEDS: PRENATAL VITAMINS W/ FOLIC ACID TABLET (FP) PO SCH (09:32)
[2021-11-04 09:55] VITALS: BP 123/67; PULSE 77; TEMP 96.8
[2021-11-04 10:38] LABS: HEMATOCRIT 41.8 % (35.4-49); HEMOGLOBIN 13.9 GM/dL (11.7-16.9); MCH 29.9 pg (25.7-33.7); MCHC 33.3 g/dl (32.0-35.9); MEAN CELL VOLUME 89.9 fl (80-96); MEAN PLT VOLUME 8.5 fl (7.5-11.1); PLATELET COUNT 177 10^3/uL (134-434); RBC 4.65 M/mm3 (4.00-5.60); RDW 15.9 % (11.9-15.9); WHITE BLOOD COUNT 5.1 K/mm3 (4.0-10.0)
[2021-11-04 10:44] LABS: ALBUMIN 3.5 g/dl (3.4-5.0); CALCIUM 8.8 mg/dL (8.5-10.1)
[2021-11-04 10:45] LABS: BLOOD UREA NITROGEN 10.6 mg/dL (7-18)
[2021-11-04 10:47] LABS: CREATININE 0.7 mg/dL (0.55-1.3)
[2021-11-04 10:49] LABS: BILIRUBIN,TOTAL 0.3 mg/dL (0.2-1); TOT PROT 7.1 g/dl (6.4-8.2)
== END 2021-11-04 09:50 | disposition home or self-care (01) | DRG 775 ==
LOC: YASAS 13:42 → Y3W 17:26 → Y3N 17:32
PROVIDERS: ADMIT Allergy & Immunology; ATTEND Surgery
PROC: HZ2ZZZZ Detoxification Services for Substance Abuse Treatment (ICD-10-PCS; principal; 2021-10-31)
DX: F10.230 Alcohol dependence with withdrawal, uncomplicated (principal); F10.280 Alcohol dependence with alcohol-induced anxiety disorder; G62.1 Alcoholic polyneuropathy; G40.909 Epilepsy, unspecified, not intractable, without status epilepticus; I10 Essential (primary) hypertension; E78.5 Hyperlipidemia, unspecified; E10.65 Type 1 diabetes mellitus with hyperglycemia; Z79.4 Long term (current) use of insulin; I25.2 Old myocardial infarction; Z56.0 Unemployment, unspecified
CPT/HCPCS: 36415; 80053; 82962; 83036; 85027; 86780; C9803-CS; Q0162; U0003; U0005

== ENCOUNTER 2022-05-16 11:01 | Inpatient (IN) | payer OTHER ==
[2022-05-16 11:23] VITALS: BMI 26.2
[2022-05-16] MEDS ORDERED: diazePAM CARPU-JECT 10 MG/2 ML DISP.SYRIN IVPUSH ONE (13:11)
[2022-05-16] MEDS ORDERED: MAG HYDROX/AL HYDROX/SIMETH 30 ML UNIT-DOSE CUP PO ONE (13:12)
[2022-05-16] MEDS ORDERED: FAMOTIDINE 20 MG/50 ML IVPB 20 MG/50 ML MG IVPB ONE ×2 (13:12→14:32)
[2022-05-16] MEDS ORDERED: ONDANSETRON 4 MG/2 ML VIAL IVPUSH ONE ×2 (13:13→17:02)
[2022-05-16] MEDS ORDERED: diazePAM CARPU-JECT 10 MG/2 ML DISP.SYRIN ONE (14:31)
[2022-05-16] MEDS ORDERED: MAG HYDROX/AL HYDROX/SIMETH 30 ML UNIT-DOSE CUP ONE (14:32)
[2022-05-16] MEDS ORDERED: ONDANSETRON 4 MG/2 ML VIAL ONE ×2 (14:32→17:07)
[2022-05-16] MEDS: LACTATED RINGERS SOLUTION 1,000 ML/1,000 ML INFUS.BAG IV SCH ×2 (14:40→20:55)
[2022-05-16 14:43] LABS: BASO % 1.4 % (0-2.0); HEMATOCRIT 42.9 % (35.4-49); LYMPH % 49.3 % (8-40); MCH 29.1 pg (25.7-33.7); MCHC 32.7 g/dl (32.0-35.9); MEAN CELL VOLUME 89.2 fl (80-96); MEAN PLT VOLUME 7.7 fl (7.5-11.1); MONO % 9.1 % (3.8-10.2); NEUT % 35.2 % (42.8-82.8); PLATELET COUNT 174 10^3/uL (134-434); RBC 4.81 M/mm3 (4.00-5.60); RDW 16.1 % (11.9-15.9); WHITE BLOOD COUNT 2.7 K/mm3 (4.0-10.0)
[2022-05-16 14:51] LABS: INR 0.95 (0.83-1.09); PROTHROMBIN TIME (PATIENT) 10.9 SEC (9.7-13.0)
[2022-05-16 14:53] LABS: ACTIVATED PTT 33.5 SECONDS (25.2-36.5)
[2022-05-16 15:10] LABS: BLOOD UREA NITROGEN 5.1 mg/dL (7-18); CALCIUM 8.8 mg/dL (8.5-10.1); MAGNESIUM 2.1 mg/dL (1.8-2.4)
[2022-05-16 15:11] LABS: ALBUMIN 3.8 g/dl (3.4-5.0)
[2022-05-16 15:12] LABS: CREATININE 0.6 mg/dL (0.55-1.3)
[2022-05-16 15:14] LABS: BILIRUBIN,TOTAL 0.3 mg/dL (0.2-1)
[2022-05-16 15:15] LABS: TOT PROT 7.3 g/dl (6.4-8.2)
[2022-05-16] MEDS ORDERED: LORazepam 2 MG TABLET PO ONE (17:02)
[2022-05-16] MEDS ORDERED: LORazepam 2 MG/ML SDV VIAL IVPUSH ONE (17:08)
[2022-05-16] MEDS ORDERED: LORazepam 1 MG TABLET PO PRN (18:19)
[2022-05-16] MEDS ORDERED: levETIRAcetam 500 MG/5 ML INJECTION VIAL IVPB ONE ×2 (18:30→19:07)
[2022-05-16 21:27] LABS: URINE COLOR YELLOW
[2022-05-16 21:28] LABS: PH,URINE 5.5 (5.0-8.0); URINE APPEARANCE CLEAR; URINE BILIRUBIN NEGATIVE (NEGATIVE); URINE KETONE 40 mg/dl (NEGATIVE); URINE LEUK ESTERASE NEGATIVE (NEGATIVE); URINE NITRITE NEGATIVE (NEGATIVE); URINE PROTEIN 30 (NEGATIVE)
[2022-05-16 21:30] LABS: EPI CELLS 0.7 /uL (0-25.1); URINE BACTERIA 20.9 /uL (0-1359); URINE RBC 9.6 /uL (0-23.9); URINE WBC 0.5 /uL (0-25.8)
[2022-05-16] MEDS: LORazepam 1 MG TABLET PO SCH (23:05)
[2022-05-17] MEDS: LORazepam 1 MG TABLET PO SCH (05:06)
[2022-05-17] MEDS ORDERED: ONDANSETRON 4 MG/2 ML VIAL ONE (05:57)
[2022-05-17] MEDS ORDERED: ONDANSETRON 4 MG/2 ML VIAL IVPUSH ONE (06:01)
[2022-05-17] MEDS ORDERED: ACETAMINOPHEN 1000 MG/100 ML BAG IVPB ONE (06:02)
[2022-05-17] MEDS ORDERED: LORazepam 2 MG/ML SDV VIAL IVPUSH ONE (06:12)
[2022-05-17] MEDS: THIAMINE HCL 100 MG TABLET (FP) PO SCH ×2 (06:42→09:22)
[2022-05-17] MEDS: FOLIC ACID 1 MG TABLET (FP) PO SCH ×2 (06:42→09:22)
[2022-05-17 09:20] VITALS: RESP 22
[2022-05-17] MEDS: LORazepam 2 MG/ML SDV VIAL IVPUSH PRN ×2 (09:22→13:14)
[2022-05-17] MEDS ORDERED: ENOXAPARIN NA (PORCINE) 40 MG/0.4 ML DISP.SYRIN SQ SCH (10:00)
[2022-05-17] MEDS ORDERED: FAMOTIDINE 20 MG TABLET PO SCH (10:00)
[2022-05-17] MEDS ORDERED: DIVALPROEX SODIUM 500 MG TABLET E.C. PO SCH (10:00)
[2022-05-17 12:43] LABS: ALBUMIN 3.4 g/dl (3.4-5.0); BLOOD UREA NITROGEN 9.3 mg/dL (7-18); CALCIUM 8.9 mg/dL (8.5-10.1); MAGNESIUM 1.9 mg/dL (1.8-2.4)
[2022-05-17 12:45] LABS: PHOSPHOROUS 3.9 mg/dL (2.5-4.9)
[2022-05-17 12:46] LABS: CREATININE 0.6 mg/dL (0.55-1.3)
[2022-05-17 12:47] LABS: BILIRUBIN,TOTAL 0.7 mg/dL (0.2-1); TOT PROT 6.6 g/dl (6.4-8.2)
[2022-05-17 13:57] VITALS: BP 139/85; PULSE 74; TEMP 98
[2022-05-17] MEDS: LACTATED RINGERS SOLUTION 1,000 ML/1,000 ML INFUS.BAG IV SCH (15:00)
[2022-05-18] MEDS ORDERED: LORazepam 1 MG TABLET PO SCH (05:00)
[2022-05-19] MEDS ORDERED: LORazepam 0.5 MG TABLET PO PRN
[2022-05-19] MEDS ORDERED: LORazepam 0.5 MG TABLET PO SCH (05:00)
[2022-05-20] MEDS ORDERED: LORazepam 0.5 MG TABLET PO ONE (05:00)
== END 2022-05-17 17:49 | disposition left against medical advice (07) | DRG 53 ==
LOC: JER 11:01 → INTOOBSV 17:20 → JERBED 17:20 → UNDOADMOB 17:20 → JERBED 18:20 → J6S 20:37 → OBSVTOIN 05-17 12:09
PROVIDERS: ADMIT Internal Medicine; ATTEND Internal Medicine
DX: G40.409 Other generalized epilepsy and epileptic syndromes, not intractable, without status epilepticus (principal); G93.89 Other specified disorders of brain; E11.9 Type 2 diabetes mellitus without complications; F10.239 Alcohol dependence with withdrawal, unspecified; F41.0 Panic disorder [episodic paroxysmal anxiety]; I10 Essential (primary) hypertension
CPT/HCPCS: 0241U-QW; 36415; 70450-TC; 71046-TC-FY; 72125-TC; 74177-TC; 80048; 80053; 80164; 80307; 81003; 82962; 83690; 83735; 84100; 84484; 85025; 85610; 85730; 87086; 93005; 93010; 99285-25; G0378; Q9967

== ENCOUNTER 2022-06-18 00:53 | Inpatient (IN) | payer OTHER ==
[2022-06-18 01:33] VITALS: BMI 25.9
[2022-06-18] MEDS ORDERED: ACETAMINOPHEN 325 MG TABLET (FP) PO PRN (01:51)
[2022-06-18] MEDS ORDERED: NALOXONE HCL (KLOXXADO) 8 MG SPRAY NS PRN (01:51)
[2022-06-18] MEDS ORDERED: MAG HYDROX/AL HYDROX/SIMETH 30 ML UNIT-DOSE CUP PO PRN (01:51)
[2022-06-18] MEDS ORDERED: LOPERAMIDE HCL 2 MG CAPSULE PO PRN (01:51)
[2022-06-18] MEDS ORDERED: BISMUTH SUBSALICYLATE 524 MG/30 ML PO PRN (01:51)
[2022-06-18] MEDS ORDERED: DICYCLOMINE HCL 10 MG CAPSULE PO PRN (01:51)
[2022-06-18] MEDS ORDERED: chlordiazePOXIDE HCL 25 MG CAPSULE PO PRN (01:51)
[2022-06-18] MEDS ORDERED: MAGNESIUM HYDROX 2400MG/30ML ORAL SUSPENSION 30 ML CUP PO PRN (01:51)
[2022-06-18] MEDS ORDERED: IBUPROFEN 400 MG TABLET (FP) PO PRN (01:51)
[2022-06-18] MEDS ORDERED: POLYETHYLENE GLYCOL (HEALTHYLAX) 3350 17 GM PACKET PO PRN (01:51)
[2022-06-18] MEDS ORDERED: BENZOCAINE/MENTHOL (CHLORASEPTIC ) LOZENGE MM PRN (01:51)
[2022-06-18] MEDS ORDERED: chlordiazePOXIDE HCL 25 MG CAPSULE PO ONE ×2 (01:51)
[2022-06-18] MEDS ORDERED: chlordiazePOXIDE HCL 25 MG CAPSULE ONE (02:18)
[2022-06-18] MEDS ORDERED: ONDANSETRON *ODT* 4 MG TABLET ONE (02:18)
[2022-06-18] MEDS: ONDANSETRON *ODT* 4 MG TABLET SL PRN ×2 (02:23→10:20)
[2022-06-18] MEDS ORDERED: chlordiazePOXIDE HCL 25 MG CAPSULE PO SCH (05:00)
[2022-06-18] MEDS: INSULIN SLIDING SCALE (NOVOLOG) 1 VIAL SQ SCH ×3 (06:21→17:19)
[2022-06-18] MEDS ORDERED: levETIRAcetam 250 MG TABLET PO SCH (10:00)
[2022-06-18] MEDS: PRENATAL VITAMINS W/ FOLIC ACID TABLET (FP) PO SCH (10:16)
[2022-06-18] MEDS: LORazepam 2 MG TABLET PO SCH ×3 (10:17→22:30)
[2022-06-18] MEDS: levETIRAcetam XR 750 MG TAB PO SCH ×2 (10:58→22:28)
[2022-06-18] MEDS: LORazepam 1 MG TABLET PO PRN ×2 (14:08→20:45)
[2022-06-18] MEDS: ACETAMINOPHEN 325 MG TABLET (FP) PO PRN (17:20)
[2022-06-18] MEDS ORDERED: traZODone HCL 100 MG TABLET (FP) PO SCH (22:00)
[2022-06-18] MEDS ORDERED: MELATONIN 5 MG TABLETS PO SCH (22:00)
[2022-06-18] MEDS: THIAMINE HCL 100 MG TABLET (FP) PO SCH (22:29)
[2022-06-18] MEDS: MIRTAZAPINE 15 MG TABLET (FP) PO SCH (22:29)
[2022-06-19] MEDS ORDERED: chlordiazePOXIDE HCL 25 MG CAPSULE PO SCH (05:00)
[2022-06-19] MEDS: LORazepam 2 MG TABLET PO SCH ×4 (05:35→22:27)
[2022-06-19] MEDS: INSULIN SLIDING SCALE (NOVOLOG) 1 VIAL SQ SCH ×3 (05:59→17:09)
[2022-06-19] MEDS: LORazepam 1 MG TABLET PO PRN ×2 (06:01→13:49)
[2022-06-19] MEDS: ACETAMINOPHEN 325 MG TABLET (FP) PO PRN (06:03)
[2022-06-19] MEDS: levETIRAcetam XR 750 MG TAB PO SCH ×2 (10:20→22:23)
[2022-06-19] MEDS: PRENATAL VITAMINS W/ FOLIC ACID TABLET (FP) PO SCH (10:20)
[2022-06-19] MEDS: ONDANSETRON *ODT* 4 MG TABLET SL PRN (17:58)
[2022-06-19 19:19] LABS: HEMATOCRIT 44.3 % (35.4-49); HEMOGLOBIN 14.9 GM/dL (11.7-16.9); MCH 30.4 pg (25.7-33.7); MCHC 33.6 g/dl (32.0-35.9); MEAN CELL VOLUME 90.6 fl (80-96); MEAN PLT VOLUME 8.3 fl (7.5-11.1); PLATELET COUNT 123 10^3/uL (134-434); RBC 4.89 M/mm3 (4.00-5.60); RDW 15.2 % (11.9-15.9); WHITE BLOOD COUNT 4.7 K/mm3 (4.0-10.0)
[2022-06-19 19:22] LABS: CALCIUM 9.3 mg/dL (8.5-10.1)
[2022-06-19 19:23] LABS: ALBUMIN 3.7 g/dl (3.4-5.0); BLOOD UREA NITROGEN 10.9 mg/dL (7-18)
[2022-06-19 19:27] LABS: BILIRUBIN,TOTAL 0.7 mg/dL (0.2-1); TOT PROT 7.5 g/dl (6.4-8.2)
[2022-06-19] MEDS ORDERED: INSULIN (LEVEMIR) 100 UNITS/ML UNITS SQ SCH (22:00)
[2022-06-19] MEDS: traZODone HCL 50 MG TABLET (FP) PO SCH (22:23)
[2022-06-19] MEDS: MIRTAZAPINE 15 MG TABLET (FP) PO SCH (22:24)
[2022-06-19] MEDS: THIAMINE HCL 100 MG TABLET (FP) PO SCH (22:24)
[2022-06-20] MEDS ORDERED: chlordiazePOXIDE HCL 10 MG CAPSULE PO PRN
[2022-06-20] MEDS ORDERED: chlordiazePOXIDE HCL 10 MG CAPSULE PO SCH (05:00)
[2022-06-20] MEDS: LORazepam 1 MG TABLET PO SCH ×4 (05:30→22:01)
[2022-06-20] MEDS: INSULIN SLIDING SCALE (NOVOLOG) 1 VIAL SQ SCH ×3 (06:21→17:09)
[2022-06-20] MEDS: levETIRAcetam XR 750 MG TAB PO SCH ×2 (10:08→22:00)
[2022-06-20] MEDS: PRENATAL VITAMINS W/ FOLIC ACID TABLET (FP) PO SCH (10:08)
[2022-06-20] MEDS: ACETAMINOPHEN 325 MG TABLET (FP) PO PRN ×2 (10:08→19:30)
[2022-06-20] MEDS ORDERED: INSULIN (LEVEMIR) 100 UNITS/ML UNITS SQ SCH (14:09)
[2022-06-20] MEDS: IBUPROFEN 600 MG TABLET (FP) PO PRN (14:40)
[2022-06-20] MEDS: LORazepam 1 MG TABLET PO PRN ×2 (14:40→19:30)
[2022-06-20] MEDS: traZODone HCL 50 MG TABLET (FP) PO SCH (22:00)
[2022-06-20] MEDS: MIRTAZAPINE 15 MG TABLET (FP) PO SCH (22:00)
[2022-06-20] MEDS: THIAMINE HCL 100 MG TABLET (FP) PO SCH (22:01)
[2022-06-21] MEDS ORDERED: LORazepam 0.5 MG TABLET PO PRN
[2022-06-21] MEDS ORDERED: chlordiazePOXIDE HCL 10 MG CAPSULE PO SCH (05:00)
[2022-06-21] MEDS: LORazepam 0.5 MG TABLET PO SCH ×2 (05:54→10:36)
[2022-06-21] MEDS ORDERED: INSULIN SLIDING SCALE (NOVOLOG) 1 VIAL SQ ONE ×2 (05:56→07:42)
[2022-06-21] MEDS: IBUPROFEN 600 MG TABLET (FP) PO PRN (05:57)
[2022-06-21] MEDS: INSULIN SLIDING SCALE (NOVOLOG) 1 VIAL SQ SCH ×2 (06:45→11:19)
[2022-06-21 09:48] VITALS: RESP 20
[2022-06-21] MEDS: PRENATAL VITAMINS W/ FOLIC ACID TABLET (FP) PO SCH (10:36)
[2022-06-21] MEDS: levETIRAcetam XR 750 MG TAB PO SCH (10:36)
[2022-06-21 13:54] VITALS: BP 122/73; PULSE 119; TEMP 97.7
[2022-06-21 14:38] LABS: ALBUMIN 3.4 g/dl (3.4-5.0)
[2022-06-21 14:40] LABS: BILIRUBIN,TOTAL 0.5 mg/dL (0.2-1); TOT PROT 6.8 g/dl (6.4-8.2)
[2022-06-21 14:41] LABS: BILIRUBIN,DIRECT 0.1 mg/dL (0.0-0.2)
[2022-06-22] MEDS ORDERED: LORazepam 0.5 MG TABLET PO ONE (05:00)
[2022-06-22] MEDS ORDERED: chlordiazePOXIDE HCL 10 MG CAPSULE PO ONE (05:00)
== END 2022-06-21 14:10 | disposition home or self-care (01) | DRG 775 ==
LOC: YASAS 00:53 → Y3N 02:33
PROVIDERS: ADMIT Allergy & Immunology; ATTEND Surgery
PROC: HZ2ZZZZ Detoxification Services for Substance Abuse Treatment (ICD-10-PCS; principal; 2022-06-18)
DX: F10.230 Alcohol dependence with withdrawal, uncomplicated (principal); F43.10 Post-traumatic stress disorder, unspecified; F41.0 Panic disorder [episodic paroxysmal anxiety]; G62.9 Polyneuropathy, unspecified; G47.00 Insomnia, unspecified; G40.909 Epilepsy, unspecified, not intractable, without status epilepticus; I10 Essential (primary) hypertension; I25.2 Old myocardial infarction; K21.9 Gastro-esophageal reflux disease without esophagitis; E11.9 Type 2 diabetes mellitus without complications; Z79.4 Long term (current) use of insulin; Z86.69 Personal history of other diseases of the nervous system and sense organs; Z86.73 Personal history of transient ischemic attack (TIA), and cerebral infarction without residual deficits
CPT/HCPCS: 0241U-QW; 36415; 70450-TC; 72125-TC; 80053; 80061; 80076; 80164; 80307; 82962; 84443; 85025; 85027; 86780; 93005; 93010; 99283-25; C9803-CS; Q0162; U0003; U0005